=== PATIENT | male | born 1980 | race Two or more races ===

== ENCOUNTER 2023-10-13 12:42 | Emergency (ER) | payer OTHER ==
[~2023-10-13] VITALS: Ht 167.6 cm; Wt 91.0 kg
[2023-10-13 14:01] VITALS: BP 119/77; PULSE 90; RESP 18; TEMP 98.3; O2SAT 96
[2023-10-13] MEDS: HYDROcodone-ACET 10/325MG TAB PO ONE (14:44)
[2023-10-13] MEDS ORDERED: IBUP-1455 PO (15:09)
[2023-10-13] MEDS ORDERED: CYCL-837 PO (15:09)
[2023-10-13] MEDS: KETOROLAC TROMETH 30 MG/ML 1ML VIAL IM ONE (15:33)
== END 2023-10-13 15:35 | disposition home or self-care (01) ==
LOC: ER 12:42
DX: R51.9 Headache, unspecified (principal); M54.59 Other low back pain; I10 Essential (primary) hypertension; Z79.1 Long term (current) use of non-steroidal anti-inflammatories (NSAID); V89.2XXA Person injured in unspecified motor-vehicle accident, traffic, initial encounter; Y93.89 Activity, other specified; Y92.89 Other specified places as the place of occurrence of the external cause; Y99.8 Other external cause status
CPT/HCPCS: 70450; 72131